=== PATIENT | male | born 1975 | race Caucasian/White ===

== ENCOUNTER 2021-03-23 08:06 | Emergency (ER) | payer OTHER, SELFPAY ==
[2021-03-23 08:21] VITALS: BP 119/71; PULSE 80; RESP 18; TEMP 37.2; O2SAT 96
--- NOTE | 2021-03-23 08:21 | ED.URI ---
HPI - URI/Sore Throat General Stated Complaint: Congestion, coughing and Nose drainage Time Seen by Provider: 03/23/21 08:28 Source: patient and RN notes reviewed Mode of arrival: ambulatory Limitations: no limitations History of Present Illness HPI Narrative: 45-year-old male presents with concern for cough, nasal congestion, drainage, headache that started 2 days ago. Reports he has been taking Zyrtec and Sudafed [id number] with some relief of the congestion. He denies shortness of breath, body aches, chills, sweats, fever denies known sick contacts. Reports he has not been vaccinated for Covid. MD elicited complaint: cough Related Data Allergies Allergy/AdvReac Type Severity Reaction Status Date / Time No Known Allergies Allergy Verified 03/23/21 08:40 Review of Systems Review of Systems: CONSTITUTIONAL: Denies malaise, chills, sweats, or fever. EYES: Denies visual changes, redness, or discharge. ENT: Reports rhinorrhea, congestion, sore throat. Denies sinus pain, otalgia CARDIOVASCULAR: Denies chest pain, palpitations, or edema. RESPIRATORY: Reports cough. Denies dyspnea. GASTROINTESTINAL: Denies abdominal pain, nausea, vomiting, diarrhea SKIN: Denies rash or itching. MUSCULOSKELETAL: Denies myalgia. NEUROLOGIC: Reports headache. All systems reviewed & are unremarkable except as noted in HPI and below PMFSH Comments At time of signature, agree with nursing past medical, surgical, social and family history. There is no relevant family history pertinent to the presenting complaint Exam Narrative: GENERAL: Well-appearing, well-nourished, and in no acute distress. HEAD: Normocephalic EYES: PERRLA, conjunctivae clear ENT: Nares clear, clear discharge. Mucous membranes moist. TM pearly varma with dull light reflex bilaterally; no tragal tenderness. Oropharynx not erythematous without lesions. Tonsils not enlarged and without exudate, no drooling, no hoarseness, no trismus, uvula midline. NECK: Supple. No lymphadenopathy CHEST: Clear to auscultation, breath sounds equal. No wheezing, rhonchi, rales, or stridor. No respiratory distress, speaks in full sentences. HEART: Regular rate and rhythm. No murmur heard. SKIN: Warm, dry, no rash. NEURO: Alert and oriented x3. PSYCH: Normal mood and affect Course Course Emergency Course: Patient is aware of diagnosis, understands and agrees to treatment plan. Anticipatory guidance given. Patient agrees to follow-up as directed and is aware of reasons to seek care at the emergency department. Portions of this record may have been created with voice recognition software Vital Signs Vital signs: Reviewed. MDM - URI/Sore Throat MDM Narrative Medical decision making narrative: Differential diagnosis considered: Garcia virus, strep pharyngitis, allergic rhinitis, upper respiratory tract infection, sinusitis, rhinosinusitis, nasopharyngitis. viral pharyngitis, otitis media, otitis externa, pneumonia, bronchitis, viral cough syndrome, viral syndrome, and influenza. Exam findings show no acute concerns or changes; patient is non-toxic appearing and is in no distress. Patient is appropriate for outpatient treatment and follow-up. Critical Care Time Critical Care Time Critical Care Time: No Discharge Plan Discharge Clinical Impression: Bronchitis Patient Disposition: Home, Self-Care Condition: Stable Instructions: Acute Bronchitis (ED) Additional Instructions: Your Rapid COVID test was negative today. If you are symptomatic with reason to believe you have COVID-19, there is a high possibility your rapid test may not have detected the virus. Rapid testing is dependent on timing and viral load and may have a false-negative reading You should follow appropriate guidelines regarding quarantine, hand washing, mask wearing, and social distancing Common Adult Symptoms: Fever/chills Cough Shortness of breath Fatigue, muscle aches Headache Loss of taste/smell Sore throat, conge
== END 2021-03-23 08:53 | disposition home or self-care (01) ==
PROVIDERS: Emergency Provider Nurse Practitioner
DX: J40 Bronchitis, not specified as acute or chronic (principal)
CPT/HCPCS: 99213; G0463

== ENCOUNTER 2021-08-15 10:17 | Emergency (ER) | payer OTHER, SELFPAY ==
[2021-08-15 10:35] VITALS: BP 134/77; PULSE 83; RESP 14; TEMP 36.8; O2SAT 98
[2021-08-15 10:42] VITALS: BP 134/77; PULSE 83; RESP 14; TEMP 36.8; O2SAT 98
--- NOTE | 2021-08-15 11:25 | ED.URI ---
HPI - URI/Sore Throat General Chief Complaint: Upper Respiratory Infection Stated Complaint: Chest Congestion/Cough/Fever Time Seen by Provider: 08/15/21 11:25 Source: patient and RN notes reviewed Mode of arrival: ambulatory Limitations: no limitations History of Present Illness HPI Narrative: 45-year-old male presents concern for 8 to 10-day history of cough, which is worse in the last 2 days. He reports he has been using Mucinex DM. Reports last night he had chills and fatigue. Denies sore throat, nasal congestion, chest pain or shortness of breath. MD elicited complaint: cough and sore throat Related Data Allergies Allergy/AdvReac Type Severity Reaction Status Date / Time No Known Allergies Allergy Verified 08/15/21 10:41 Review of Systems Review of Systems: CONSTITUTIONAL: Reports malaise, fatigue chills, sweats. Denies fever. EYES: Denies visual changes, redness, or discharge. ENT: Denies rhinorrhea, congestion, sinus pain, otalgia and sore throat. CARDIOVASCULAR: Denies chest pain, palpitations, or edema. RESPIRATORY: Reports cough. Denies dyspnea. GASTROINTESTINAL: Denies abdominal pain, nausea, vomiting, diarrhea SKIN: Denies rash or itching. MUSCULOSKELETAL: Denies myalgia. NEUROLOGIC: Denies headache. All systems reviewed & are unremarkable except as noted in HPI and below PMFSH Comments At time of signature, agree with nursing past medical, surgical, social and family history. There is no relevant family history pertinent to the presenting complaint Exam Narrative: GENERAL: Well-appearing, well-nourished, and in no acute distress. HEAD: Normocephalic EYES: PERRLA, conjunctivae clear ENT: Nares clear, turbinates edematous and erythematous, clear discharge. Mucous membranes moist. TM pearly varma with dull light reflex bilaterally; no tragal tenderness. Oropharynx not erythematous without lesions. Tonsils not enlarged and without exudate, no drooling, no hoarseness, no trismus, uvula midline. NECK: Supple. No lymphadenopathy CHEST: Clear to auscultation, breath sounds equal. No wheezing, rhonchi, rales, or stridor. No respiratory distress, speaks in full sentences. HEART: Regular rate and rhythm. No murmur heard. SKIN: Warm, dry, no rash. NEURO: Alert and oriented x3. PSYCH: Normal mood and affect Course Course Emergency Course: Patient is aware of diagnosis, understands and agrees to treatment plan. Anticipatory guidance given. Patient agrees to follow-up as directed and is aware of reasons to seek care at the emergency department. Portions of this record may have been created with voice recognition software Vital Signs Vital signs: Vital Signs Temperature 98.3 F 08/15/21 10:35 Pulse Rate 83 08/15/21 10:35 Respiratory Rate 14 08/15/21 10:35 Blood Pressure 134/77 08/15/21 10:35 Pulse Oximetry 98 08/15/21 10:35 Temperature 98.3 F 08/15/21 10:42 Pulse Rate 83 08/15/21 10:42 Respiratory Rate 14 08/15/21 10:42 Blood Pressure 134/77 08/15/21 10:42 Pulse Oximetry 98 08/15/21 10:42 Reviewed. MDM - URI/Sore Throat MDM Narrative Medical decision making narrative: Differential diagnosis considered: Garcia virus, strep pharyngitis, allergic rhinitis, upper respiratory tract infection, sinusitis, rhinosinusitis, nasopharyngitis. viral pharyngitis, otitis media, otitis externa, pneumonia, bronchitis, viral cough syndrome, viral syndrome, and influenza. Exam findings show no acute concerns or changes; patient is non-toxic appearing and is in no distress. Patient is appropriate for outpatient treatment and follow-up. Lab Data Attestation: I reviewed the patient's lab results. Labs: Influenza A Screen Negative Reference Range: Negative Influenza B Screen Negative Reference Range: Negative Critical Care Time Critical Care Time Critical Care Time: No
== END 2021-08-15 11:39 | disposition home or self-care (01) ==
PROVIDERS: Emergency Provider Nurse Practitioner
DX: U07.1 COVID-19 (principal)
CPT/HCPCS: 87426; 87804; 99213; C9803; G0463

== ENCOUNTER 2022-05-28 18:53 | Emergency (ER) | payer OTHER, SELFPAY ==
--- NOTE | ~2022-05-28 | XR_ITS ---
EXAMINATION: XR chest 2V Exam Date/Time: 05/28/2022 19:50 CDT HISTORY: cough x 2 weeks Comparison: None available. RESULT: Lines, tubes, and devices: None. Lungs and pleura: Clear. Cardiomediastinal silhouette: Stable. Other: No acute osseous or upper abdominal finding. IMPRESSION: No acute cardiopulmonary process. Reviewed, dictated and finalized at location K.
[2022-05-28 18:59] VITALS: BP 134/76; PULSE 88; RESP 16; TEMP 36.1; O2SAT 97
--- NOTE | 2022-05-28 20:05 | ED.GENADULT ---
HPI - General Adult General Chief complaint: Upper Respiratory Infection Stated complaint: Cough Source: patient Mode of arrival: ambulatory Limitations: no limitations History of Present Illness HPI narrative: Patient presents for evaluation of cough for the last 2 weeks. He states that cough is somewhat productive. He occasionally has some shortness of breath with exertion. No fever, chills, nausea, vomiting, sore throat, otalgia. He does not smoke. No recent sick contacts to his knowledge. He tried taking some Mucinex DM and NyQuil without considerable improvement in his symptoms or after. His father had lung cancer but was a smoker. No additional complaints or concerns. Related Data Allergies Allergy/AdvReac Type Severity Reaction Status Date / Time No Known Allergies Allergy Verified 05/28/22 19:40 Review of Systems Review of Systems: CONSTITUTIONAL: Denies fever, chills, or sweats. EYES: Denies visual changes, redness, or discharge. ENT: Denies rhinorrhea, congestion, sore throat, or otalgia. CARDIOVASCULAR: Denies chest pain, palpitations, or edema. RESPIRATORY: Reports intermittently productive cough with exertional dyspnea GASTROINTESTINAL: Denies abdominal pain, nausea, vomiting, or diarrhea. GENITOURINARY: Denies dysuria or hematuria. SKIN: Denies rash or itching. MUSCULOSKELETAL: Denies back pain, joint pain, or myalgia. NEUROLOGIC: Denies headache, numbness, dizziness, or weakness. PSYCHIATRIC: Denies anxiety or depression. [facility] Surgical History Surgical History (Updated 05/28/22 @ 20:07 by Rakesh Boo, [facility], ) History of hernia repair Family History Family History Father Lung cancer Social History Social History Smoking status: Never smoker Alcohol intake: current Alcohol use details: social Substance use: never Additional living arrangements comments: lives with girlfriend Additional occupation/education comments: Construction Gender identity (if verbalized by the patient): Male Sexual Orientation (if Verbalized by the Patient): Straight or Heterosexual Spiritual care concerns: No Exam Narrative: GENERAL: Well-appearing, well-nourished, and in no acute distress. HEAD: Normocephalic, atraumatic. EYES: PERRLA and EOMI. ENT: Nares clear, no rhinorrhea or epistaxis. Mucous membranes moist. Oropharynx without tonsillar hypertrophy exudate or other lesions. Bilateral TMs pearly varma nonbulging NECK: Supple. No adenopathy or masses. No carotid bruits or JVD CHEST: Cough present on exam. Clear to auscultation. No respiratory distress. No wheezes rales or rhonchi HEART: Regular rate and rhythm. No murmur heard. Normal peripheral pulses. ABDOMEN: Soft, nontender, nondistended, normal active bowel sounds. EXTREMITIES: Normal range of motion. No edema. SKIN: Warm, dry, no rash. NEURO: No focal deficits. Alert and oriented x3. PSYCH: Normal mood and affect. Course Course Emergency Course: This a 46-year-old male that presented for evaluation of cough for the past two weeks. Chest x-ray was negative. COVID was negative. Exam is consistent with acute viral syndrome. Will discharge with Tessalon. Follow-up outpatient for further evaluation and treatment and go to the ER for worsening symptoms. Patient is in agreement with plan of care. Level of Care: Express Care Visit Vital Signs Vital signs: Vital Signs Temperature 36.1 C L 05/28/22 18:59 Pulse Rate 88 05/28/22 18:59 Respiratory Rate 16 05/28/22 18:59 Blood Pressure 134/76 05/28/22 18:59 Pulse Oximetry 97 05/28/22 18:59 Oxygen Delivery Room Air 05/28/22 18:59 Temperature 36.1 C L 05/28/22 18:59 Pulse Rate 88 05/28/22 18:59 Respiratory Rate 16 05/28/22 18:59 Blood Pressure 134/76 05/28/22 18:59 Pulse Oximetry 97 05/28/22 18:59 Oxygen Delivery Room Air
== END 2022-05-28 20:42 | disposition home or self-care (01) ==
PROVIDERS: Emergency Provider Nurse Practitioner
DX: J06.9 Acute upper respiratory infection, unspecified (principal); Z20.822 Contact with and (suspected) exposure to COVID-19
CPT/HCPCS: 71046; 87426; 99213; C9803; G0463

== ENCOUNTER 2022-10-28 18:41 | Emergency (ER) | payer OTHER, SELFPAY ==
--- NOTE | 2022-10-28 18:46 | ED.URI ---
HPI - URI/Sore Throat General Chief Complaint: Upper Respiratory Infection Stated Complaint: cold flu Time Seen by Provider: 10/28/22 18:53 Source: patient and RN notes reviewed Mode of arrival: ambulatory Limitations: no limitations History of Present Illness HPI Narrative: 47-year-old male presents with concern for persistent cough, chest burning. Reports coughing fits that make him feel like ?he is going to lose consciousness?. He denies taking any over the counter medications for his symptoms. He denies fever, chills, sweats, shortness of breath. He reports rhinorrhea nasal congestion with some mild sore throat. MD elicited complaint: cough Related Data Home Medications Medication Instructions Recorded Confirmed levothyroxine 25 mcg tablet mcg 10/28/22 omeprazole 20 mg capsule,delayed mg 10/28/22 release sildenafil 50 mg tablet mg 10/28/22 Allergies Allergy/AdvReac Type Severity Reaction Status Date / Time No Known Allergies Allergy Verified 05/28/22 19:40 Review of Systems Review of Systems: CONSTITUTIONAL: Denies malaise, chills, sweats, or fever. EYES: Denies visual changes, redness, or discharge. ENT: Reports rhinorrhea, congestion. Denies sinus pain, otalgia and sore throat. CARDIOVASCULAR: Denies chest pain, palpitations, or edema. RESPIRATORY: Reports cough. Denies dyspnea. GASTROINTESTINAL: Denies abdominal pain, nausea, vomiting, diarrhea SKIN: Denies rash or itching. MUSCULOSKELETAL: Denies myalgia. NEUROLOGIC: Denies headache. All systems reviewed & are unremarkable except as noted in HPI and below PMFSH Surgical History Surgical History (Updated 05/28/22 @ 20:07 by Rakesh Boo, [facility], ) History of hernia repair Family History Family History Father Lung cancer Social History Social History Smoking status: Never smoker Alcohol intake: current Alcohol use details: social Substance use: never Additional living arrangements comments: lives with girlfriend Additional occupation/education comments: Construction Gender identity (if verbalized by the patient): Male Sexual Orientation (if Verbalized by the Patient): Straight or Heterosexual Spiritual care concerns: No Comments At time of signature, agree with nursing past medical, surgical, social and family history. There is no relevant family history pertinent to the presenting complaint Exam Narrative: GENERAL: Well-appearing, well-nourished, and in no acute distress. HEAD: Normocephalic EYES: PERRLA, conjunctivae clear ENT: Nares clear, clear discharge. Mucous membranes moist. TM pearly varma with dull light reflex bilaterally; no tragal tenderness. Oropharynx not erythematous without lesions. Tonsils not enlarged and without exudate, no drooling, no hoarseness, no trismus, uvula midline. NECK: Supple. No lymphadenopathy CHEST: Clear to auscultation, breath sounds equal. No wheezing, rhonchi, rales, or stridor. No respiratory distress, speaks in full sentences. Cough noted HEART: Regular rate and rhythm. No murmur heard. SKIN: Warm, dry, no rash. NEURO: Alert and oriented x3. PSYCH: Normal mood and affect Course Course Emergency Course: Patient is aware of diagnosis, understands and agrees to treatment plan. Anticipatory guidance given. Patient agrees to follow-up as directed and is aware of reasons to seek care at the emergency department. Portions of this record may have been created with voice recognition software Level of Care: Express Care Visit Vital Signs Vital signs: Reviewed. MDM - URI/Sore Throat MDM Narrative Medical decision making narrative: Differential diagnosis considered: Garcia virus, strep pharyngitis, allergic rhinitis, upper respiratory tract infection, sinusitis, rhinosinusitis, nasopharyngitis. viral pharyngitis, otitis media, otitis externa, pneumonia,
[2022-10-28 18:47] VITALS: BP 130/80; PULSE 97; RESP 16; TEMP 36.6; O2SAT 99
== END 2022-10-28 19:08 | disposition home or self-care (01) ==
PROVIDERS: Emergency Provider Nurse Practitioner; PCP Physician Assistant
DX: J40 Bronchitis, not specified as acute or chronic (principal)
CPT/HCPCS: 99213; G0463

== ENCOUNTER 2024-01-08 18:05 | Emergency (ER) | payer OTHER, SELFPAY ==
[2024-01-08 18:14] VITALS: BP 113/74; PULSE 80; RESP 20; TEMP 36.7; O2SAT 97
--- NOTE | 2024-01-08 19:02 | ED.URI ---
HPI - URI/Sore Throat General Chief Complaint: Upper Respiratory Infection Stated Complaint: cough Time Seen by Provider: 01/08/24 19:04 Source: patient, RN notes reviewed and old records reviewed Mode of arrival: ambulatory Limitations: no limitations History of Present Illness HPI Narrative: 48 year old male who presents to [facility] care with complaints of cough for the past 3 days which is dry with decreased energy. Upper chest discomfort with cough, denies any shortness of breath. Patient states that his and kids have been ill with strep throat within the past 2 weeks and he had some soreness of his throat. Patient reports that he has been taking Robitussin and NyQuil for his symptoms. Patient report that he has not had a fever. MD elicited complaint: cough and sore throat Pertinent past history: other (bronchitis) Onset (ago): day(s) (3) Able to tolerate fluids by mouth: Yes Treatments prior to arrival: other (NyQuil and Robitussin) Related Data Home Medications Medication Instructions Recorded Confirmed levothyroxine 25 mcg tablet 25 mcg PO DAILY 10/28/22 01/08/24 omeprazole 20 mg capsule,delayed 20 mg PO DAILY 10/28/22 01/08/24 release Allergies Allergy/AdvReac Type Severity Reaction Status Date / Time No Known Allergies Allergy Verified 01/08/24 18:27 Review of Systems Review of Systems: CONSTITUTIONAL: Denies malaise, chills, sweats, or fever. EYES: Denies visual changes, redness, or discharge. ENT: Reports rhinorrhea, congestion, sinus pain, no otalgia and positive sore throat. CARDIOVASCULAR: Denies chest pain, palpitations, or edema. RESPIRATORY: Reports cough.? Denies dyspnea.discomfort to upper chest with cough GASTROINTESTINAL: Denies abdominal pain, nausea, vomiting, diarrhea SKIN: Denies rash or itching. MUSCULOSKELETAL: Denies myalgia. NEUROLOGIC: Denies headache. All systems reviewed & are unremarkable except as noted in HPI and below PMFSH Past Medical History Medical History (Updated 01/08/24 @ 20:16 by Isabel Dillon NP) Bronchitis GERD (gastroesophageal reflux disease) Hypothyroidism Surgical History Surgical History History of hernia repair Family History Family History Father Lung cancer Social History Social History Smoking status: Never smoker Alcohol intake: current Alcohol use details: social Substance use: never Additional living arrangements comments: lives with girlfriend Additional occupation/education comments: Construction Gender identity (if verbalized by the patient): Male Sexual Orientation (if Verbalized by the Patient): Straight or Heterosexual Spiritual care concerns: No Comments At time of signature, agree with nursing past medical, surgical, social and family history. There is no relevant family history pertinent to the presenting complaint Exam Narrative: GENERAL: Well-appearing, well-nourished, and in no acute distress. HEAD: Normocephalic EYES: PERRLA, conjunctivae clear ENT: Nares clear, turbinates edematous and erythematous, clear discharge. Mucous membranes moist. TM pearly varma with dull light reflex bilaterally; no tragal tenderness. Oropharynx erythematous without lesions. Tonsils mildly enlarged and without exudate, no drooling, no hoarseness, no trismus, uvula midline. post nasal drainage NECK: Supple. No lymphadenopathy CHEST: Clear to auscultation, breath sounds equal. No wheezing, rhonchi, rales, or stridor. No respiratory distress, speaks in full sentences.cough non productive SAO2 97% on room air HEART: Regular rate and rhythm. No murmur heard. SKIN: Warm, dry, no rash. NEURO: Alert and oriented x3. PSYCH: Normal mood and affect Course Course Emergency Course: Patient is aware of diagnosis, understa
== END 2024-01-08 19:32 | disposition home or self-care (01) ==
PROVIDERS: Emergency Provider Registered Nurse; PCP Physician Assistant
DX: J06.9 Acute upper respiratory infection, unspecified (principal); K21.9 Gastro-esophageal reflux disease without esophagitis; E03.9 Hypothyroidism, unspecified
CPT/HCPCS: 87081; 87880; 99213; G0463